=== PATIENT | male | born 1965 | race Caucasian/White ===

== ENCOUNTER 2020-10-31 21:53 | Emergency (ER) | payer OTHER ==
[~2020-10-31] VITALS: Ht 170.2 cm; Wt 64.6 kg
[~2020-10-31 21:53] MED LIST: ALLER-TEC10 MG PO; ALREX5 ML OD; ASPIRIN EC81 MG PO; CALCIUM 600-VI1 EACH PO; LOFIBRA160 MG PO; MUCINEX600 MG PO; PRAVACHOL80 MG PO; PROAIR HFA8.5 GM INH; TEMOVATE15 GM TOP; TRIAMCINOLONE A15 G1 TOP; VITAMIN D32000 UNIT PO
[2020-10-31] MEDS ORDERED: FLUOROMETHOLONE5 ML OPTH ×2 (22:28)
[2020-11-01] MEDS ORDERED: ZOFRAN4 MG PO ×2 (01:33)
[2020-11-01] MEDS ORDERED: FLOMAX0.4 MG PO ×2 (01:33)
[2020-11-01] MEDS ORDERED: LEVOFLOXACIN500 MG PO ×2 (01:33)
[2020-11-01] MEDS ORDERED: HYDROCODON-ACE1 EA10 PO ×2 (01:33)
[2020-11-09] MEDS ORDERED: BAYER CHEWABLE81 MG PO (14:07)
[2020-11-09] MEDS ORDERED: LEVOFLOXACIN500 MG PO (14:08)
[2020-11-09] MEDS ORDERED: FENOFIBRATE160 MG PO (14:08)
[2020-11-09] MEDS ORDERED: FLOMAX0.4 MG PO (14:09)
== END 2020-11-01 02:22 | disposition home or self-care (01) ==
LOC: ED 21:53
DX: N13.2 Hydronephrosis with renal and ureteral calculous obstruction (principal); N39.0 Urinary tract infection, site not specified; D64.9 Anemia, unspecified; Z88.8 Allergy status to other drugs, medicaments and biological substances; Z79.899 Other long term (current) drug therapy; Z79.82 Long term (current) use of aspirin
CPT/HCPCS: 74176; 80053; 81001; 83690; 85025; 87077; 87088; 87186; 96365; 96375; 96376; 99284-25; J0696; J1170; J1885; J2405; J7030

== ENCOUNTER 2020-11-02 06:19 | Day surgery (SDC) | payer OTHER ==
[~2020-11-02] VITALS: Ht 170.2 cm; Wt 61.0 kg
[~2020-11-02 06:19] MED LIST changes: +FLOMAX0.4 MG PO; +FLUOROMETHOLONE5 ML OPTH; +HYDROCODON-ACE1 EA10 PO; +LEVOFLOXACIN500 MG PO; +ZOFRAN4 MG PO
--- NOTE | 2020-11-02 09:30 | NUR ---
11/02/20 0930 Sheets,Ellen 8767 PT ARRIVED TO PACU ON 6L VIA MASK WITH ORAL AIRWAY IN PLACE. VSS. RESP EVEN AND UNLABORED.
--- NOTE | 2020-11-02 11:00 | NUR ---
AMB TO BR VOIDS 600ML RED URINE
--- NOTE | 2020-11-02 12:01 | NUR ---
CHECKING ON PT BEFORE SURGERY-PTS' SUPERVISOR FEED MILL IN RM. WILL FOLLOW NEEDED
--- NOTE | 2020-11-02 12:02 | NUR ---
CONNECTED WITH PT'S KWASI IN [place]. SHE IS THANKFUL PT LET HER BRING HIM TO ED ANE THEN FOLLOW UP TODAY. SHE FEELS GOOD ABOUT HIS CARE AT [facility], ALL OF HER QUESTIONS ANSWERED. GAVE BLESSING AND ENCOURAGEMENT. WILL FOLLOW NEEDED
--- NOTE | 2020-11-05 10:40 | OR ---
[facility] [address] [place], [place] [address] Signed DATE OF OPERATION: 11/02/2020 SURGEON: Tamar Ewing MD PREOPERATIVE DIAGNOSES: 1. A 5 mm left proximal ureteral calculus with associated hydronephrosis. 2. Active urinary tract infection. POSTOPERATIVE DIAGNOSES: 1. A 5 mm left proximal ureteral calculus with associated hydronephrosis. 2. Active urinary tract infection. 3. Diminutive urethral meatus. 4. Mild stenosis of the pendulous urethra. NAMES OF PROCEDURES: 1. Urethral dilation using Gilpin sounds, from 8-Citizen Of [place] to 24-Citizen [place]. 2. Diagnostic cystoscopy with left ureteral stent insertion. ANESTHESIA: General. ESTIMATED BLOOD LOSS: Minimal. COMPLICATIONS: None. SPECIMENS: None. DRAINS: A 6 x 26 cm double-J ureteral stent inserted into the left ureter. INDICATION FOR PROCEDURE: Mr. Beltre is a very pleasant 55-year-old gentleman with no previous history of nephrolithiasis, who presented to the emergency department a couple nights ago with sudden onset of severe left-sided flank pain, nausea, and vomiting. On presentation to the emergency department, he was found to have an active urinary tract infection with 3+ bacteria on his urine dip. He underwent a CT scan which revealed an obstructing 5 mm left proximal ureteral calculus with associated mild hydronephrosis. Also, noted on the Electronically Signed By: TAMAR EWING MD 11/05/20 1040 PATIENT NAME: SOULEYMANE BELTRE OPERATIVE REPORT DATE OF : 67 REPORT #: [id number] PHYSICIAN: TAMAR EWING MD PCP: ESTER BORJA MD REPORT IS CONFIDENTIAL AND NOT TO BE RELEASED WITHOUT AUTHORIZATION [facility] [address] [place], [place] [address] scan were bilateral punctate renal calculi. The patient reports that he has no known history of kidney stones. Since his presentation to the emergency department, he has been experiencing anorexia symptoms along with continued left-sided flank pain, however, his pain is somewhat improved on oral [place]. Because of the presence of UTI in combination with the obstructing stone, the patient will be taken to the operating room today to undergo diagnostic cystoscopy with placement of a left indwelling ureteral stent. OPERATIVE FINDINGS: 1. Physical examination reveals a normal phallus with testicles descended bilaterally. Further inspection of the meatus reveals that it is somewhat diminutive. His meatus did require urethral dilation using Elizabeth sounds from 8-Citizen Of [place] to 24-Citizen [place]. This was performed without difficulty. 2. Diagnostic cystoscopy was performed, which revealed no evidence of any suspicious masses, lesions, or stones. Bilateral ureteral orifices are in their normal anatomic location. I do not appreciate any obvious median lobe of the prostate or any obvious lateral lobe hypertrophy for that matter. There was some evidence of mild stenosis of the urethra, particularly in the pendulous portion of the urethra. 3. A 6 x 26 cm double-J ureteral stent was inserted into the left collecting system under fluoroscopic guidance without difficulty. DESCRIPTION OF PROCEDURE: After informed consent was obtained, the patient was taken back to the operating room. He was transferred from the [facility] to the operating room table, where general anesthesia was induced. He was placed in the dorsal lithotomy position and his genitalia were prepped and draped in a standard sterile fashion. Physical examination of the genitalia was then performed. Once the mild meatal stenosis was noted on the penis, the decision was made to dilate his urethral meatus using Gilpin sounds from 8-Citizen Of [place] to 24-Citizen [place]. Please see above operative findings. I was then able to insert a 30-degree lens cystoscope on a 22-Citizen Of [place] introducer into the patient's bladder. Diagnostic cystoscopy was then performed. Please see above findings. I turned my attention to the left ureteral orifice. A 0.035 Sensor wire was inserted into the left ureteral orifice and up into the left collecting system. Adequate placement of the wire was confirmed on fluoroscopy. Over the wire, I passed a 6 x 26 cm double-J ureteral stent without difficulty. When the wire was pulled, an adequate proximal coil was seen in the left renal pelvis via fluoroscopy. Repeat cystoscopy revealed an adequate distal coil within the bladder. The patient's bladder was then drained and the cystoscope was removed. The patient tolerated the procedure well without any complication. He will now be transferred to the postanesthesia care unit in stable condition. DISPOSITION: I discussed the details of today's procedure with the patient's and answered all of Electronically Signed By: TAMAR EWING MD 11/05/20 1040 PATIENT NAME: SOULEYMANE BELTRE OPERATIVE REPORT DATE OF : 67 REPORT #: [id number] PHYSICIAN: TAMAR EWING MD PCP: ESTER BORJA MD REPORT IS CONFIDENTIAL AND NOT TO BE RELEASED WITHOUT AUTHORIZATION [address] [address] Signed her questions. The patient now has an indwelling ureteral stent in place that will now allow proper decompression of his left collecting system. He will continue his oral Levaquin for the next 9 days. The patient was also given additional pain control in the form of Ontario 7.5/325 dispense #20 as needed for pain. He is going to be placed back on the operating room schedule to undergo definitive left ureteroscopy with laser lithotripsy and basket extraction of left ureteral and renal calculi on November 12, 2020. MD EL Fernandes/GRAY /[id number] Copies: ~ Electronically Signed By: TAMAR EWING MD 11/05/20 1040 PATIENT NAME: SOULEYMANE BELTRE OPERATIVE REPORT DATE OF : 67 REPORT #: [id number] PHYSICIAN: TAMAR EWING MD PCP: ESTER BORJA MD REPORT IS CONFIDENTIAL AND NOT TO BE RELEASED WITHOUT AUTHORIZATION
[2020-11-09] MEDS ORDERED: BAYER CHEWABLE81 MG PO (14:07)
[2020-11-09] MEDS ORDERED: LEVOFLOXACIN500 MG PO (14:08)
[2020-11-09] MEDS ORDERED: FENOFIBRATE160 MG PO (14:08)
[2020-11-09] MEDS ORDERED: FLOMAX0.4 MG PO (14:09)
== END 2020-11-02 11:45 | disposition home or self-care (01) ==
LOC: OPS 06:19 → DS 06:19 → OPS 09:00 → DS 09:00 → OPS 11:45
PROVIDERS: ATTEND Urology
PROC: 0T778DZ Dilation of Left Ureter with Intraluminal Device, Via Natural or Artificial Opening Endoscopic (ICD-10-PCS; principal; 2020-11-02 09:00)
DX: N13.6 Pyonephrosis (principal); N36.8 Other specified disorders of urethra; N35.914 Unspecified anterior urethral stricture, male; J45.909 Unspecified asthma, uncomplicated; Z20.822 Contact with and (suspected) exposure to COVID-19
CPT/HCPCS: 00910; 76000; C1769; C2617; J0696; J1100; J2001; J2250; J2405; J2704; J7121; U0003

== ENCOUNTER 2020-11-12 07:33 | Day surgery (SDC) | payer OTHER ==
[~2020-11-12] VITALS: Ht 170.2 cm; Wt 139.0 kg
[~2020-11-12 07:33] MED LIST changes: +BAYER CHEWABLE81 MG PO; +FENOFIBRATE160 MG PO
--- NOTE | 2020-11-12 11:10 | NUR ---
11/12/20 1110 Carolina Coronado 1105- PT ARRIVES TO PACU NONAROUSABLE TO VERBAL STIMULI. RESP EVEN AND UNLABORED. OXYGEN SAT HIGH 90'S TO 100% ON 6L VIA MASK. PT SHIVERING. MORE WARM BLANKETS APPLIED, SHIVERING STOPPED.
--- NOTE | 2020-11-12 12:24 | NUR ---
AMB TO BR VOIDS 200MLS PINK URINE.
--- NOTE | 2020-11-14 08:54 | OR ---
[facility] [address] [place], [place] [address] Signed DATE OF OPERATION: 11/12/2020 SURGEON: Tamar Ewing MD PREOPERATIVE DIAGNOSES: 1. 5 mm left proximal ureteral calculus. 2. Recurrent urinary tract infections. POSTOPERATIVE DIAGNOSES: 1. 5 mm left proximal ureteral calculus. 2. Recurrent urinary tract infections. 3. No obvious evidence of prostatic obstruction or urethral stricture or stenosis as a cause of recurrent urinary tract infection. NAMES OF PROCEDURES: 1. Diagnostic cystoscopy with left retrograde pyelogram. 2. Left flexible nephroureteroscopy with basket extraction of 5 mm left renal calculus. 3. Exchange of 6 x 26 cm double-J left ureteral stent. ANESTHESIA: General. ESTIMATED BLOOD LOSS: 20 mL. COMPLICATIONS: None. SPECIMENS: 5 mm stone sent to the lab for stone analysis. DRAINS: A 6 x 26 cm double-J ureteral stent inserted into the left collecting system. INDICATIONS FOR PROCEDURE: Mr. Beltre is a very pleasant 55-year-old gentleman with a previous history of recurrent urinary tract infections, who presented to the emergency department twice for left-sided flank pain and low-grade fever. At that time, he was found to have an active urinary tract infection and was given IV antibiotics as well as oral antibiotics and sent home to attempt a trial of passage. Soon thereafter, he was seen by me in clinic where he Electronically Signed By: TAMAR EWING MD 11/14/20 0854 PATIENT NAME: SOULEYMANE BELTRE OPERATIVE REPORT DATE OF : 67 REPORT #: [id number] PHYSICIAN: TAMAR EWING MD PCP: ESTER BORJA MD REPORT IS CONFIDENTIAL AND NOT TO BE RELEASED WITHOUT AUTHORIZATION [facility] [address] [place], [place] [address] Signed underwent a semi-urgent cystoscopy with left ureteral stent insertion approximately 2 weeks ago. He has been doing well since the stent has been in place and he recently completed a course of oral Levaquin. He presents today to undergo definitive stone extraction. OPERATIVE FINDINGS: 1. On cystoscopy, there was no evidence of any suspicious masses, lesions, or stones. There is also no evidence of any overt bladder wall trabeculation. He has an indwelling left ureteral stent. 2. Left retrograde pyelogram was performed via the ureteral access sheath, which revealed no evidence of any calyceal dilation. There was an obvious filling defect in the mid pole of the left kidney consistent with his known 5 mm stone. 3. Left flexible nephroureteroscopy was performed and the stone was removed in toto using a Zero tip basket without the need for lithotripsy. Of note, the stone was somewhat crumbly and I suspect that it is not a 100% calcium based stone. 4. A fresh 6 x 26 cm double-J ureteral stent was inserted into the left collecting system once the stone was extracted completely. I evaluated the remainder of the kidney and appreciated just very small punctate stones in the lower pole of the kidney. I was unable to basket these as they were too small, so I attempted to irrigate them out. DESCRIPTION OF PROCEDURE: After informed consent was obtained, the patient was taken back to the operating room. He was transferred from the [facility] to the operating room table where general anesthesia was induced. He was placed in the dorsal lithotomy position and his genitalia were prepped and draped in standard sterile fashion. The patient's urethra was dilated from 18-Sri Lankan to 26-Sri [place]ankan without difficulty. I then inserted a 22-S[place]ankan sheath with a 30-degree lens. Diagnostic cystoscopy was performed and the indwelling ureteral stent was located. The stent was removed to the level of the urethral meatus. I then passed a Sensor wire through the indwelling stent and up into the left collecting system. The indwelling ureteral stent was removed fully intact. I confirmed adequate placement of the wire on fluoroscopy. Over the wire, I passed a 13/15 ureteral access sheath into the left collecting system. Contrast was injected through the sheath and into the left kidney. Please see above findings. I then passed a ureteroscope through the sheath and into the proximal left ureter and entire left kidney. The 5 mm stone was immediately noted in the mid pole of the left kidney. The stone was extracted in toto using a Zero tip basket without difficulty. I then continued diagnostic nephroscopy to look for any other significant stones that I could extract. They were all quite small and I was unable to reliably extract any of these stones. A good deal of these punctate stones were located in the lower pole of the left kidney. I then attempted to irrigate these stones from the lower pole as best as I could. Once I was satisfied that there were no other significant stones present in the left kidney, I slowly removed the ureteroscope, visualizing the entire [id number] left ureter. I passed a Sensor wire through the Electronically Signed By: TAMAR EWING MD 11/14/20 0854 PATIENT NAME: SOULEYMANE BELTRE OPERATIVE REPORT DATE OF : 67 REPORT #: [id number] PHYSICIAN: TAMAR EWING MD PCP: ESTER BORJA MD REPORT IS CONFIDENTIAL AND NOT TO BE RELEASED WITHOUT AUTHORIZATION [address] [place] [address] Signed sheath and into the left collecting system. The ureteral access sheath was then removed completely from the patient's ureter. Over the wire, I passed a 6 x 26 cm double-J ureteral stent into the left ureter under direct visualization. Once I pulled the wire, an adequate proximal coil was seen with the left renal pelvis along with an adequate distal coil in the bladder. There was a string left attached to the stent at the end of the procedure. The string was secured to the patient's penis. The patient's bladder was then drained and the cystoscope was removed. The procedure was then terminated. The patient tolerated the procedure well without any complication. He will now be transferred to the postanesthesia care unit in stable condition. DISPOSITION: I discussed the details of today's procedure with the patient's and answered all of her questions. I told her that I do not suspect that his stone is 100% calcium. However, I do not know for sure what it is until the stone analysis returns. We will discuss the results of the stone analysis in early December at the time of his postop visit. He will be sent home today with an additional 7 days of Levaquin 500 mg p.o. daily along with oxycodone 5 mg one tablet p.o. q.6 hours p.r.n. pain, dispense #20. He has been scheduled to return to clinic on December 24 for his 1st postoperative visit. MD EL Fernandes/GRAY /[id number] Copies: ~ Electronically Signed By: TAMAR EWING MD 11/14/20 0854 PATIENT NAME: SOULEYMANE BELTRE OPERATIVE REPORT DATE OF : 67 REPORT #: [id number] PHYSICIAN: TAMAR EWING MD PCP: ESTER BORJA MD REPORT IS CONFIDENTIAL AND NOT TO BE RELEASED WITHOUT AUTHORIZATION
== END 2020-11-12 13:10 | disposition home or self-care (01) ==
LOC: OPS 07:33 → DS 07:33 → OPS 10:10 → DS 10:10 → OPS 13:10
PROVIDERS: ATTEND Urology
PROC: 0TC78ZZ Extirpation of Matter from Left Ureter, Via Natural or Artificial Opening Endoscopic (ICD-10-PCS; 2020-11-12)
PROC: 0T778DZ Dilation of Left Ureter with Intraluminal Device, Via Natural or Artificial Opening Endoscopic (ICD-10-PCS; principal; 2020-11-12 10:10)
DX: N20.2 Calculus of kidney with calculus of ureter (principal); N39.0 Urinary tract infection, site not specified; Z79.82 Long term (current) use of aspirin
CPT/HCPCS: 00918; 74420; C1769; C2617; J0690; J1100; J1885; J2001; J2405; J2704; J3010; J7121; Q9967

== ENCOUNTER 2024-01-13 06:58 | Emergency (ER) | payer OTHER ==
[~2024-01-13] VITALS: Ht 170.2 cm; Wt 60.0 kg
[~2024-01-13 06:58] MED LIST changes: +PHYTOMULTI TAB1 EACH PO; +ZETIA10 MG PO
--- OUTSIDE RECORDS SUMMARY | 2024-01-13 07:05 | XMS ---
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 Malou has no Care Guidelines for this patient. [place] VISIT COUNT (12 MO.) 1 TOO [place] [facility] TOTAL 2 NOTE: Visits indicate total known visits. ED/C VISIT TRACKING (12 MO.) 01/13/2024 06:59 [facility]OO [facility] [place] TYPE: Emergency COMPLAINT: - [facility] DIAGNOSES: - Other difficulties with micturition - Urinary Complaint INPATIENT VISIT TRACKING (12 MO.) No inpatient visits to display in this time frame [email or web address]
[2024-01-13] MEDS ORDERED: TAMSULOSIN HCL0.4 MG PO (07:15)
[2024-01-13] MEDS ORDERED: CEPHALEXIN500 MG PO (07:15)
[2024-01-13] MEDS ORDERED: PHENAZOPYRIDIN200 MG PO (07:15)
[2024-01-13 07:40] LABS: BILIRUBIN, URINE POSITIVE (negative); BLOOD/HGB, URINE LARGE (Negative); KETONE, URINE TRACE (Negative); LEUK ESTERASE, URINE TRACE (negative); NITRITE, URINE POSITIVE (negative)
[2024-01-13 07:51] LABS: BACTERIA, URINE RARE /hpf (negative); CASTS, URINE NONE SEEN \\lpf; COLLECTION TYPE, URINE CLEAN CATCH; CRYSTALS, URINE NONE SEEN (0-1+); EPITHELIAL CELLS, URINE OCCASIONAL /lpf (0-1+); RED BLOOD CELLS, URINE >50 /hpf (0-5); REFLEX CULTURE, URINE Yes (No); WHITE BLOOD CELLS, URINE 21-40 /HPF (0-5)
[2024-01-13] MEDS ORDERED: OXYBUTYNIN CHLOR5 M1 PO (07:59)
[2024-01-13] MEDS ORDERED: TAMSULOSIN HCL 0.4 MG CAP PO ONE (08:00)
[2024-01-13] MEDS ORDERED: PHENAZOPYRIDINE HCL 95 MG TAB PO ONE (08:00)
[2024-01-13] MEDS ORDERED: oxyBUTYnin chloride 5 MG TAB PO ONE (08:00)
[2024-01-13 08:50] VITALS: BP 138/78
== END 2024-01-13 08:51 | disposition home or self-care (01) ==
LOC: ED 06:58
PROVIDERS: Emergency Medicine
DX: N32.89 Other specified disorders of bladder (principal); J45.909 Unspecified asthma, uncomplicated; Z91.048 Other nonmedicinal substance allergy status; Z79.82 Long term (current) use of aspirin; Z79.899 Other long term (current) drug therapy
CPT/HCPCS: 51798; 81001; 87088; 99283-25

== ENCOUNTER 2024-03-07 06:53 | Day surgery (SDC) | payer OTHER ==
[2024-03-02 10:34] VITALS: BP 131/82
[~2024-03-07] VITALS: Ht 170.2 cm; Wt 61.4 kg
--- NOTE | 2024-03-07 06:25 | NUR ---
DURING REVIEW OF PTS CHART, NOTED PT WITH POSITIVE UA AND CULTURE. DR. EWING NOTIFIED VIA PHONE AND VERBAL ORDERS RECEIVED TO DC ANCEF AND REPLACE WITH 500 MG LEVOFLOXACIN ONCALL TO OR. UPDATED ORDERS IN EMAR.
[~2024-03-07 06:53] MED LIST changes: -CALCIUM 600-VI1 EACH PO; +CALCIUM PO; +CEPHALEXIN500 MG PO; +FLUOROMETHOLONE5 ML OD; -FLUOROMETHOLONE5 ML OPTH; +LACTATED RINGER'S 1,000 ML IV SCH; +OXYBUTYNIN CHLOR5 M1 PO; +PHENAZOPYRIDIN200 MG PO; +TAMSULOSIN HCL0.4 MG PO; +[UNRECOGNIZED DRUG - OTHER] PO
[2024-03-07] MEDS ORDERED: levoFLOXacin 500 MG/100 ML BAG IV SCH (07:00)
[2024-03-07] MEDS ORDERED: IBLOOD GLUCOSE TEST STRIP 1 EA TEST VI PRN ×2 (07:00→07:15)
[2024-03-07] MEDS ORDERED: CEFAZOLIN SODIUM 2 GM/20 ML SYR IV SCH (07:00)
[2024-03-07] MEDS ORDERED: LIDOCAINE HCL 1% 5 ML SDV INJ ONE (07:00)
[2024-03-07 07:08] VITALS: BP 125/78
[2024-03-07] MEDS ORDERED: fentaNYL citrate 50 MCG/ML SDV IV PRN (07:15)
[2024-03-07] MEDS ORDERED: NALOXONE HCL 0.4 MG SYR IV PRN (07:15)
[2024-03-07] MEDS ORDERED: ondansetron HCL 4 MG/2 ML VIAL IV PRN ×2 (07:15→07:45)
[2024-03-07] MEDS ORDERED: HYDROmorphone HCL 1 MG/ML SYR IV PRN (07:45)
[2024-03-07] MEDS ORDERED: OXYCODONE/APAP 5/325 TAB PO PRN (07:45)
[2024-03-07] MEDS ORDERED: LIDOCAINE HCL 2% 5 ML SDV ONE (07:51)
[2024-03-07] MEDS ORDERED: propofoL 200 MG/20 ML VIAL ONE (07:51)
[2024-03-07] MEDS ORDERED: fentaNYL citrate 100 MCG/2 ML VIAL ONE (08:24)
[2024-03-07] MEDS ORDERED: ePHEDrine sulfate 50 MG/ML AMP ONE (08:45)
[2024-03-07] MEDS ORDERED: ondansetron HCL 4 MG/2 ML VIAL ONE (09:21)
[2024-03-07] MEDS ORDERED: LEVOFLOXACIN500 MG PO (09:30)
[2024-03-07] MEDS ORDERED: OXYCODONE HCL5 MG PO (09:31)
[2024-03-07] MEDS ORDERED: oxyBUTYnin chloride 5 MG TAB PO ONE (09:45)
--- NOTE | 2024-03-07 09:58 | NUR ---
03/07/24 0958 Lucinda Lynn 0936 PT TO PACU SLEEPING ORAL AIRWAY IN PLACE. O2 ON 6L VIA MASK. FOGGING NOTED IN MASK.
[2024-03-07 10:30] VITALS: BP 163/90
--- NOTE | 2024-03-07 11:05 | NUR ---
1030-PT ARRIVED BACK TO FROM PACU ON AAOX3 AND ABLE TO MAKE HIS NEEDS KNOWN. PT NOTED TO ANSWER QUESTIONS APPROPRIATELY. PT ON RA WITH SATS 95% OR GREATER. REPEPORT RECEIVED FROM FLAT OPTICAL ELEMENT MAKER. PT TAKING SMALL SIPS OF WATER. PT REPORTS PAIN 3/10 AND DESCIBES AT FEELING LIKE URGENCY/FREQ AND BLADDER DISCOMFORT. PT REPORTS SOME CONTROL OF BLADDER, BUT DRIBBLING IS NOTED. PT WITH URINAL IN PLACE TO CATCH AT PTS REQUEST. URINAL EMPTIED OF 50 ML OF PINK-BLOOD TINGED URINE. NO BLEEDING OR DRAINAGE NOTED FROM URETHRA UPON OBSERVATION. PT DENIES NAUSEA WHEN ASKED. PT GIVEN CHOCOLATE PUDDING AND CHELSI CRACKERS AND IS EATING NOW. VS TAKEN. IV SITE ASSESSED, PATENT, AND INFUSING LR PER ORDERS. ALL QUESTIONS ANSWERED. CALL LIGHT WITHIN PT REACH. BED IN LOW POSITION WITH WHEELS LOCKED. BILAT RAILS IN PLACE FOR SAFETY. 1055-PT PROVIDED WITH NEW WARM BLANKET AND ICE WATER REFILLED. 1105-PTS DAUGHTER AND ARRIVED TO PTS ROOM AND PICKED UP RX'S TO TAKE TO PHARMACY AND DROP OFF. FAMILY REPORTS THEY WILL RETURN AFTER DROPPING RX'S OFF.
[2024-03-07 11:30] VITALS: BP 166/83
--- NOTE | 2024-03-07 11:50 | NUR ---
1130-INTO PTS ROOM FOR ROUTINE REASSESSMENT. VS TAKEN. IV SITE ASSESSED. PT IS EATING AND DRINKING W/O ISSUES. IV SL'D AT THIS TIME. PT CONT TO DENY NAUSEA WHEN ASKED. PT REPORTS PAIN IN BLADDER/URETHRA INCREASED SLIGHTLY TO 4/10. PT DECLINES PAIN MEDS AND REPORTS THIS TO BE A TOLERABLE LEVEL FOR HIM. PT REMAINS WITH URINAL IN PLACE. EMPTIED OF APPROX 500 ML OF BLOOD TINGED URINE. NOTED A COUPLE SMALL BLOOD CLOTS. NO BLEEDING OR DRAINAGE VISUALIZED FROM URETHRA. PT REPLACED URINAL AFTER THIS RN EMPTIED. PT REPORTS DRIBBLING OF URINE W/FREQ AND URGENCY. CALL LIGHT W/IN PT REACH. BED IN LOW POSIION, WHEELS LOCKED, AND BILAT RAILS IN [place] FOR SAFETY. ICE WATER REFILLED. 1150-PTS DAUGHTER RETURNED AND IS AT PTS BEDSIDE.
[2024-03-07] MEDS ORDERED: PYRIDIUM200 MG PO (11:57)
[2024-03-07] MEDS ORDERED: OXYBUTYNIN CHLOR5 M1 PO (11:57)
[2024-03-07 12:15] VITALS: BP 147/76
--- NOTE | 2024-03-07 12:25 | NUR ---
1200-INTO PTS ROOM FOR DISCHARGE EDUCATION AND ROUTINE REASSESSMENT. PT INFORMED DR. EWING OFFICE WILL CONTACT HIM TO SCHEDULE A 4-6 WEEK F/U APPT. ADVISED PT TO CALL AND SCHEDULE IF HE HAS NOT HEARD FROM THEM BY THURSDAY. PT EDUCATED ON NEW MEDS ORDERS. PT INFORMED TO START OXYBUTYNIN AND LEVAQUIN ON 03/08/24, HE HAS ALREADY RECEIVED HIS DAILY DOSES HERE TODAY. PT VERBALIZED UNDERSTANDING. PT GIVEN EDUCATION HANDOUT ON CYSTITIS AND DISCUSS AVOIDING ACIDIC FOODS, BEVERAGES, AND INCREASING WATER INTAKE TO HELP DECREASE BLADDER IRRITATION AND PREVENT FLARE-UPS. PT VERBALIZED UNDERSTANDING. ALL QUESTIONS ANSWERED. DAUGHTER PRESENT FOR DC EDUCATION WELL. 1215-VS TAKEN. IV SITE ASSESSED. PT DENIES NAUSEA. PT REPORTS PAIN DECREASED TO 2/10. URINAL EMPTIED OF ANOTHER 300 ML OF PINK BLOOD TINGED URINE, THOUGH MANAGER FIRE PINK THAN PREVIOUSLY OBSERVED. NO CLOTS PRESENT. DAUGHTER REMAINS AT PT BEDSIDE. NO BLOOD OR DRAINAGE SEEN FROM URETHRA. 1220-PT ASSISTED TO EOB AND AMBULATED TO RESTROOM WITH RN SUPERVISION FOR SAFETY. PT ABLE TO VOID 300 ML OF BLOOD TINGED URINE AT ONCE. PT DRESSED FOR DISCHARGE. 1225-IV REMOVED FROM LFA. TIP OBSERVED TO BE INTACT. PRESSURE DRSG APPLIED WITH GAUZE AND COBAN. DAUGHTER LEFT TO PULL CAR AROUND FRONT.
--- NOTE | 2024-03-07 12:30 | NUR ---
PT DISCHARGED FROM DS VIA WC TO PASSENGER SIDE OF DAUGHTERS VEHICLE. PT TOOK ALL PERSONAL BELONGINGS WITH HIM.
[2024-03-07] MEDS ORDERED: SEVOFLURANE 250 ML BTL INH ONE (15:43)
--- NOTE | 2024-03-09 16:37 | PATH ---
[facility] [address] [place], [place] [address] Signed SPECIMEN(S): A POSTERIOR BLADDER WALL BIOPSY SPECIMEN SOURCE: A. POSTERIOR BLADDER WALL BIOPSY CLINICAL HISTORY: Bladder lesion, ureteral stenosis FINAL PATHOLOGIC DIAGNOSIS: Posterior bladder wall biopsy: - Urothelium with diffuse superficial erosion and atypia (favor reactive) with mixed inflammation, negative for invasive malignancy. - See comment. COMMENT: The urothelial atypia is likely reactive there is no evidence of invasive urothelial carcinoma in the prominent background of stromal inflammation. JVR:cml MICROSCOPIC EXAMINATION: Histologic sections of all submitted blocks are examined by light microscopy. These findings, together with the gross examination, support the pathologic diagnosis. Immunostains are performed with appropriate controls and show the following: Block A1: - CK5: Positive in urothelium of concern. - CK20: Negative for full-thickness urothelial staining or occult carcinoma. JVR:cml GROSS DESCRIPTION: The specimen, labeled and designated "Case, posterior bladder wall biopsy," is received in formalin and consists of two maldonado soft tissue fragments, ranging from 0.2-0.3 cm. Entirely submitted in (A1). VB (under the direct supervision of a pathologist) The Gross Description was prepared using a voice recognition system. The report was reviewed for accuracy; however, sound-alike word errors, addition and/or deletions may occur. If there is any question about this report, please contact Client Services. PERFORMING LABORATORY: Technical component was performed by [employer], [place]o [place], PATIENT NAME: SOULEYMANE SERRANO PATHOLOGY DATE OF : 67 REPORT #: [id number] PHYSICIAN: RHONDA PATHOLOGY PCP: HUGO OH MD REPORT IS CONFIDENTIAL AND NOT TO BE RELEASED WITHOUT AUTHORIZATION [address] [place], [place] [address] [place] [address] (CLIA# [id number]). Professional interpretation was performed by [facility] - [address] [address] (CLIA#: [id number]). Diagnostician: Bran Bazan MD Pathologist Electronically Signed 03/09/2024 Copies: ~ PATIENT NAME: SOULEYMANE SERRANO PATHOLOGY DATE OF : 67 REPORT #: [id number] PHYSICIAN: RHONDA GARLAND PCP: HUGO OH MD REPORT IS CONFIDENTIAL AND NOT TO BE RELEASED WITHOUT AUTHORIZATION
== END 2024-03-07 12:30 | disposition home or self-care (01) ==
LOC: OPS 06:53 → DS 06:53 → OPS 08:55 → DS 12:55
PROVIDERS: ATTEND Urology
PROC: 0T5B8ZZ Destruction of Bladder, Via Natural or Artificial Opening Endoscopic (ICD-10-PCS; 2024-03-07)
PROC: 0T7D8DZ Dilation of Urethra with Intraluminal Device, Via Natural or Artificial Opening Endoscopic (ICD-10-PCS; principal; 2024-03-07 08:55)
DX: N30.11 Interstitial cystitis (chronic) with hematuria (principal); B95.7 Other staphylococcus as the cause of diseases classified elsewhere; N35.816 Other urethral stricture, male, overlapping sites; N32.89 Other specified disorders of bladder; N40.1 Benign prostatic hyperplasia with lower urinary tract symptoms; R33.9 Retention of urine, unspecified; E78.00 Pure hypercholesterolemia, unspecified; Z79.82 Long term (current) use of aspirin; Z79.899 Other long term (current) drug therapy
CPT/HCPCS: 00912; J1956; J2405; J2704; J3010; J7121

== ENCOUNTER 2024-03-22 01:18 | Inpatient (IN) | payer OTHER ==
[2024-03-22] VITALS (10 sets, daily range): BP systolic 93–166; BP diastolic 55–77
[~2024-03-22] VITALS: Ht 170.2 cm; Wt 60.0 kg
[~2024-03-22 01:18] MED LIST changes: +CHOLESTEROL RE1 EACH PO; -LACTATED RINGER'S 1,000 ML IV SCH; +OXYCODONE HCL5 MG PO; -PHYTOMULTI TAB1 EACH PO; +PYRIDIUM200 MG PO
[2024-03-22 01:49] LABS: BILIRUBIN, URINE NEGATIVE (negative); BLOOD/HGB, URINE LARGE (Negative); KETONE, URINE NEGATIVE (Negative); LEUK ESTERASE, URINE NEGATIVE (negative); NITRITE, URINE NEGATIVE (negative)
[2024-03-22 01:52] LABS: CASTS, URINE NONE SEEN \\lpf; COLLECTION TYPE, URINE CLEAN CATCH; CRYSTALS, URINE NONE SEEN (0-1+); EPITHELIAL CELLS, URINE SQUAMOUS 1+ /lpf (0-1+); RED BLOOD CELLS, URINE >50 /hpf (0-5)
[2024-03-22 01:53] LABS: BACTERIA, URINE 4+ /hpf (negative); REFLEX CULTURE, URINE Yes (No)
[2024-03-22] MEDS ORDERED: MORPHINE SULFATE 4 MG/ML VIAL IV ONE (02:00)
[2024-03-22] MEDS ORDERED: ondansetron HCL 4 MG/2 ML VIAL IV ONE (02:00)
[2024-03-22] MEDS ORDERED: SODIUM CHLORIDE 0.9% 1,000 ML IV ONE (02:00)
[2024-03-22 02:11] LABS: BASOPHILS 0.2 % (0-2); EOSINOPHILS 1.2 % (0-6); HEMATOCRIT 34.9 % (35.0-50.0); HEMOGLOBIN 11.8 g/dL (12.0-18.0); LYMPHOCYTES 11.9 % (24-44); MCH 28.5 (27-36); MCHC 33.7 g/dl (30-36); MCV 84.5 fl (81-99); MONOCYTES 4.5 % (0-12); NEUTROPHILS 82.2 % (39-80); PLATELET COUNT 325 K/uL (140-440); RBC 4.13 M/ul (4.3-5.7); RDW 12.8 (10.5-15.0)
[2024-03-22 02:24] LABS: ALBUMIN 3.4 g/dL (3.4-5.0); ALBUMIN/GLOBULIN RATIO 1.13 (1.1-2.4); ANION GAP 12.4 (7-21); BILIRUBIN, TOTAL 0.4 ng/dL (0.2-1.0); BUN/CREATININE RATIO 14.04 (6.0-28.6); CALCIUM 8.4 mg/dL (8.5-10.1); CREATININE, SERUM 1.21 mg/dL (0.70-1.30); MAGNESIUM 1.7 mg/dL (1.8-2.4); POTASSIUM 3.4 mmol/L (3.5-5.1); PROTEIN, TOTAL 6.4 g/dL (6.4-8.2)
[2024-03-22 02:49] LABS: ABO A; ANTIBODY SCREEN NEGATIVE; RH POSITIVE
[2024-03-22] MEDS ORDERED: CEFTRIAXONE/SODIUM CHLORIDE 2 GM/100 ML PIGGYBACK IV ONE (03:15)
[2024-03-22] MEDS ORDERED: LIDOCAINE 2% VISCOUS 6 ML SYR TOP ONE ×2 (03:15→03:30)
[2024-03-22] MEDS ORDERED: ACETAMINOPHEN 325 MG TAB PO PRN (03:30)
[2024-03-22] MEDS ORDERED: LACTATED RINGER'S 1,000 ML IV SCH (03:30)
[2024-03-22] MEDS ORDERED: HYDROmorphone HCL 1 MG/ML SYR IV PRN (03:30)
[2024-03-22] MEDS ORDERED: ondansetron HCL 4 MG/2 ML VIAL IV PRN ×2 (03:30→12:15)
--- NOTE | 2024-03-22 04:41 | NUR ---
PT ADMITTED AT 0415 FROM ED VIA STRETCHER, SIZE [address] F/C DRAININGN RED COLORED URINE, CBI INFUSING. ALERT AND ORIENTED, ON ROOM AIR. TELE#[address] AT BEDSIDE
--- NOTE | 2024-03-22 06:30 | NUR ---
IN RM BECAUSE pt HR INCREASED TO 130'S. pt STATES HE HAD THE FEELING OF HAVING TO PEE. THEN IT WENT AWAY. THIS RN FLUSHED SEBASTIAN AND CHECKED THE CBI BAG. FIRST BAG EMPTY. NEW BAG STARTED. pt DENIES ANY NEED FOR PAIN MEDICATION AT THIS TIME. CALL LIGHT WITHIN REACH.
--- NOTE | 2024-03-22 06:42 | NUR ---
PT C/O BLADDER/PENILE DISCOMFORT. PER TELE#3 PULSE INCREAED TO 160, PT r LEG TWITCHING AND PT C/O 6/10 PAIN, F/C DRAINAGE DARK RED, FLUSHED. CBI INFUSING INFUSING, MEDICATED WITH DILAUDID 0.5MG IV. NPO FAMILY AT BEDSIDE
--- NOTE | 2024-03-22 07:25 | NUR ---
BEDSIDE REPORT RECEIVED FROM VIDAL JIMENEZ. PT AWAKE AND ALERT, DR. EWING IN ROOM. SURGICAL CONSENT PERFORMED. CALL LIGHT IN REACH.
[2024-03-22 07:51] LABS: BASOPHILS 0.2 % (0-2); EOSINOPHILS 0.3 % (0-6); HEMATOCRIT 31.6 % (35.0-50.0); HEMOGLOBIN 10.6 g/dL (12.0-18.0); MCH 28.4 (27-36); MCHC 33.6 g/dl (30-36); MCV 84.5 fl (81-99); MONOCYTES 3.6 % (0-12); NEUTROPHILS 84.9 % (39-80); PLATELET COUNT 296 K/uL (140-440); RBC 3.74 M/ul (4.3-5.7); RDW 12.9 (10.5-15.0)
--- NOTE | 2024-03-22 07:57 | NUR ---
SEBASTIAN FLUSHED WITH 15 MLS NS, 15 MLS PULLED BACK, NO CLOTS, SEBASTIAN CATHETER DRAINS TO GRAVITY.
[2024-03-22] MEDS ORDERED: PHENAZOPYRIDINE HCL 95 MG TAB PO PRN (08:00)
[2024-03-22] MEDS ORDERED: MORPHINE SULFATE 4 MG/ML VIAL IV PRN (08:00)
--- NOTE | 2024-03-22 08:20 | NUR ---
CONTACT BY PT'S PIPELINE CONTROLLER, REQUESTED VISIT PRIOR TO SURGERY. PT SUPPORTED BY ADULT DAUGHTER AND PIPELINE CONTROLLER IN ROOM. ALL APPEARED TO BE IN RELATIVELY GOOD SPIRITS, RELAYED INFORMATION FROM CARE TEAM, EXPRESSED CONFIDENCE IN CARE, HOPE IN RECOVERY. CERTIFIED PROFESSIONAL ERGONOMIST PROVIDED SUPPORTIVE PRESENCE, HOSPITALITY, PARTICIPATED IN PRAYER PROVIDED BY PT'S PIPELINE CONTROLLER. PT AND FAMILY EXPRESSED GRATITUDE.
--- NOTE | 2024-03-22 08:45 | NUR ---
PT LEAVES UNIT VIA BED, ESCORTED BY VIDAL ZABALA TO SURGERY.
[2024-03-22] MEDS ORDERED: propofoL 200 MG/20 ML VIAL ONE (09:04)
[2024-03-22] MEDS ORDERED: LIDOCAINE HCL 2% 5 ML SDV ONE (09:04)
[2024-03-22] MEDS ORDERED: DEXAMETHASONE SOD PHOS 4 MG/ML VIAL ONE (09:04)
[2024-03-22] MEDS ORDERED: ondansetron HCL 4 MG/2 ML VIAL ONE (09:04)
[2024-03-22] MEDS ORDERED: fentaNYL citrate 100 MCG/2 ML VIAL ONE ×2 (09:04→10:54)
--- NOTE | 2024-03-22 09:34 | NUR ---
UR CLINICAL REVIEW: [facility] INPATIENT CRITERIA FOR UROLOGIC DISEASE GRG INPT 03/22/24 @ 0847 WILL UPDATE REG CLINICALS SENT TO [facility] FOR AUTH REVIEW DISCHARGE TO HOME WHEN STABLE. ANTICIPATE 2-3 DAYS WITH CBI. 03/25/24
[2024-03-22] MEDS ORDERED: ePHEDrine sulfate 50 MG/ML AMP ONE (09:47)
[2024-03-22] MEDS ORDERED: TRANEXAMIC ACID 1,000 MG/10 ML AMP ONE ×2 (09:54→11:42)
--- NOTE | 2024-03-22 11:00 | NUR ---
Attempted to see pt. He remains in surgery. Will fu tomorrow.
[2024-03-22] MEDS ORDERED: TRIAMCINOLONE 0.1% 15 GM TUBE ONE (11:38)
--- NOTE | 2024-03-22 11:59 | NUR ---
03/22/24 Radha9 Allyson Up SCANT CLEAR URINE NOTED SEBASTIAN OVERNIGHT BAG. BLADDER IRRIGATION SLOWED.
[2024-03-22] MEDS ORDERED: oxyBUTYnin chloride 5 MG TAB PO ONE (12:00)
[2024-03-22] MEDS ORDERED: PHARMACY RENAL DOSE ADJUSTMENT 1 DOSE MISC PO SCH (12:00)
[2024-03-22] MEDS ORDERED: MORPHINE SULFATE 10 MG/ML VIAL IV PRN (12:15)
[2024-03-22] MEDS ORDERED: IBLOOD GLUCOSE TEST STRIP 1 EA TEST VI PRN (12:15)
[2024-03-22] MEDS ORDERED: NALOXONE HCL 0.4 MG SYR IV PRN (12:15)
[2024-03-22] MEDS ORDERED: fentaNYL citrate 50 MCG/ML SDV IV PRN (12:15)
[2024-03-22] MEDS ORDERED: PROCHLORPERAZINE EDISYLATE 10 MG/2 ML VIAL IV PRN (12:15)
[2024-03-22] MEDS ORDERED: droPERidol 5 MG/2 ML VIAL IV PRN (12:15)
[2024-03-22] MEDS ORDERED: METOCLOPRAMIDE HCL 10 MG/2 ML SDV IV PRN (12:15)
--- NOTE | 2024-03-22 13:09 | NUR ---
PT RETURNS TO [facility], ROOM 119 AT 1240, VIA BED. PT IS AWAKE AND ALERT. DENIES PAIN, NAUSEA OR DISCOMFORT AT THIS TIME. NOTED CBI IN PLACE, OUTPUT IS CLEAR AT THIS TIME. VSS. CPOX IN PLACE, PT SATS 98% ON RA. SCDS FROM ANKLE TO KNEE BLE. TELEMETRY IN PLACE. PT EATS LUNCH, TOLERATING THIS WELL. CALL LIGHT IN REACH. NO REQUESTS AT THIS TIME.
--- NOTE | 2024-03-22 13:43 | NUR ---
CBI CONINTUES, RATE TITRATED DOWN. SEBASTIAN OUTPUT CONTINUES TO BE CLEAR. PT EATS 100% OF LUNCH, TOLERATES THIS WELL. VISITORS X2 IN ROOM. NO REQUESTS AT THIS TIME.
--- NOTE | 2024-03-22 13:44 | NUR ---
MED REC COMPLETE
--- NOTE | 2024-03-22 15:29 | NUR ---
PT IS AWAKE AND ALERT, ALTHOUGH HE REPORTS FEELING, "SLEEPY," AND, "I DIDN'T SLEEP WELL LAST NIGHT. PT SATS 97% ON RA. CBI CONTINUES TO BE TITRATED DOWN TO SLOW RATE. SEBASTIAN CONTINUES TO DRAIN CLEAR YELLOW URINE. CBI STOPPED AT THIS TIME.
[2024-03-22] MEDS ORDERED: SEVOFLURANE 250 ML BTL INH ONE (15:43)
--- NOTE | 2024-03-22 16:41 | NUR ---
PT REPORTS HIS DAUGHTER TOO HIS [place] [facility].
--- NOTE | 2024-03-22 16:44 | NUR ---
CBI HAS NOW BEEN STOPPED X1 HOUR. SEBASTIAN DRAINS CLEAR, PALE YELLOW OUTPUT, 350 ML NOTED. SEBASTIAN CLAMPED. 125 ML OF CBI ALLOWED INTO BLADDER, UNTIL PT REPORTS URGE TO VOID. SEBASTIAN REMOVED, TIP INTACT. PT ATTEMPTS TO VOID IN URINAL, NO URINE AT THIS TIME. PT REQUESTS TIME TO ATTEMPT.
--- NOTE | 2024-03-22 16:56 | NUR ---
PATIENT IN BED AT THIS TIME. CALL LIGHT WITHIN REACH, NO FURTHER NEEDS AT THIS TIME.
--- NOTE | 2024-03-22 17:32 | NUR ---
PT AMBULATES TO TOILET WITH STEADY GAIT, VOIDS 200 MLS OF CLEAR LIGHT ORANGE URINE. PT TOLERATES THIS WELL. PT BACK TO BED. SCDS IN PLACE. CALL LIGHT IN REACH, DINNER TO PT. NO REQUESTS AT THIS TIME.
[2024-03-22 17:58] LABS: BASOPHILS 0.2 % (0-2); EOSINOPHILS 0.1 % (0-6); HEMATOCRIT 30.3 % (35.0-50.0); HEMOGLOBIN 10.3 g/dL (12.0-18.0); LYMPHOCYTES 6.8 % (24-44); MCHC 34.1 g/dl (30-36); MONOCYTES 2.5 % (0-12); NEUTROPHILS 90.4 % (39-80); PLATELET COUNT 286 K/uL (140-440); RBC 3.57 M/ul (4.3-5.7); RDW 12.9 (10.5-15.0)
--- NOTE | 2024-03-22 18:29 | NUR ---
PATIENT IN BED AT THIS TIME. CHEMICAL PLANT TECHNICAL DIRECTOR CHARTED VITALS AND I&O'S. CALL LIGHT WITHIN REACH, NO FURTHER NEEDS AT THIS TIME.
--- NOTE | 2024-03-22 19:05 | NUR ---
REPORT RECEIVED FROM ARTEMIO DRAKE. pt RESTING IN THE BED WITH SCD'S ON. pt STATES HE WANT TO TRY AND USE THE BR. AGRICULTURAL ENGINEERING TECHNICIAN CALLED INTO RM TO HELP pt. NO OTHER NEEDS AT THIS TIME. CALL LIGHT WITHIN REACH.
--- NOTE | 2024-03-22 20:00 | NUR ---
ANSWERED PATIENT'S CALL. SBA TO THE BATHROOM AND BACK TO BED. PATIENT VOIDED 200ML CLEAR LIGHT YELLOW URINE. ICE WATER REFILLED. NO OTHER NEEDS AT THIS TIME.
[2024-03-22] MEDS ORDERED: CEFTRIAXONE/SODIUM CHLORIDE 1 GM/100 ML PIGGYBACK IV SCH (21:00)
--- NOTE | 2024-03-22 21:05 | NUR ---
ASSESSMENT AND VITAL SIGNS DONE. pt STATES HE HAS 2/10 PAIN. BUT DENIES ANY NEED FOR PAIN MEDICATION. IB ABX INFUSING PER ORDER. pt DENIES ANY OTHER NEEDS AT THIS TIME. SCD'S ON. IV FLUSHED, WNL. CALL LIGHT WITHIN REACH.
--- NOTE | 2024-03-22 21:30 | NUR ---
PATIENT CALLED TO USE THE RESTROOM. SBA. PATIENT VOIDED 300ML CLEAR YELLOW URINE. PATIENT IS BACK IN BED. ICE WATER REFILLED. NO OTHER NEEDS AT THIS TIME.
--- NOTE | 2024-03-22 23:29 | NUR ---
pt RESTING IN THE BED. DUCUSEED PRN MEDICATION WITH pt. pt DENIES THE NEED FOR ANY MEDICATION AT THIS TIME. CALL LIGHT WITHIN REACH.
[2024-03-23 00:32] VITALS: BP 113/60
--- NOTE | 2024-03-23 00:33 | NUR ---
SBA PATIENT UP TO THE BATHROOM TO VOID 300ML CLEAR YELLOW URINE. PATIENT IS BACK IN BED. V/S AND I&'S TAKEN AND CHARTED. DENIES FURTHER NEEDS AT THIS TIME.
--- NOTE | 2024-03-23 01:50 | NUR ---
pt RESTING IN THE BED. pt CALLED FOR HIS SCD MACHINE ALARMING. ALARM FIXED. pt DENIES ANY OTHER NEEDS AT THIS TIME. CALL LIGHT WITHIN REACH.
[2024-03-23 05:02] VITALS: BP 118/67
--- NOTE | 2024-03-23 05:07 | NUR ---
ASSESSMENT AND VITAL SIGNS DONE. pt UP TO THE BR. SBA FOR LINE AND TUBE MANAGEMENT. SCD'S ON. CPOX ON. pt DENIES ANY OTHER NEEDS AT THIS TIME. CALL LIGHT WITHIN REACH.
[2024-03-23 05:42] LABS: ANION GAP 8.1 (7-21); BUN/CREATININE RATIO 12.87 (6.0-28.6); CALCIUM 8.5 mg/dL (8.5-10.1); CREATININE, SERUM 1.01 mg/dL (0.70-1.30); MAGNESIUM 1.9 mg/dL (1.8-2.4); POTASSIUM 4.1 mmol/L (3.5-5.1)
--- NOTE | 2024-03-23 07:05 | NUR ---
VERBAL REPORT RECEIVED FROM VIDAL JIMENEZ. PT RESTS IN BED WITH EYES CLOSED, RESP EVEN AND UNLABORED, PT O2 SATS PER CPOX 97% ON RA.
--- NOTE | 2024-03-23 08:17 | NUR ---
PATIENT IN CHAIR AT THIS TIME. NUTRITION COORDINATOR ASSISTED PATIENT FROM BED THE BATHROOOM AND THEN BACK TO THE CHAIR. NUTRITION COORDINATOR CHARTED PATIENTS VOIDINGS ON CHART IN ROOM. CALL LIGHT WITHIN REACH, NO FURTHER NEEDS AT THIS TIME.
--- NOTE | 2024-03-23 08:33 | NUR ---
PT SITS UP IN RECLINER, EATS MEAL, DENIES PAIN OR DISCOMFORT AT THIS TIME. CALL LIGHT IN REACH, NO REQUESTS AT THIS TIME.
[2024-03-23] MEDS ORDERED: LEVOFLOXACIN750 MG PO (09:19)
--- NOTE | 2024-03-23 09:30 | NUR ---
Spoke with Tolilliam. He is resting in bed. and daughter are in the room. He lives in a home with 2 steps. No issues getting in or out. Pt does not use any DME. Plans on dc to home with his and 2 daughters. He denies any needs. He does not have any financial issues. Family will assist with household tasks, cooking, driving. Pt has a fu appt scheduled with . Appt added to dc.
[2024-03-23 09:54] VITALS: BP 97/57
--- NOTE | 2024-03-23 10:36 | NUR ---
DISCUSSED DISCHARGE INSTRUCTIONS WITH PT AND PT'S SPOUSE, BOTH VERBALIZE UNDERSTANDING. WRITTEN COPY OF DISCHARGE INSTRUCTIONS RECEIVED. PT DRESSES SELF, TOLERATES ACTIVITY WELL, VSS. IV REMOVED, TIP INTACT, GAUZE AND COBAN DRESSING APPLIED TO SITE, PT TOLERATED WELL. PT LEAVES MED-SURG VIA WHEELCHAIR ESCORTED BY SCOTTIE WEI, TO PRIVATE CAR DRIVEN BY SPOUSE.
--- NOTE | 2024-03-24 19:02 | EKG ---
[facility] [address] [place], [place] [address] Signed Normal sinus rhythm Normal ECG No previous ECGs available Confirmed by Michelle Shah MD ([id number]) on 03/24/2024 7:02:08 PM Electronically Signed By: MICHELLE SHAH MD 03/24/24 190 PATIENT NAME: CASESOULEYMANE Electrocardiogram DATE OF : 67 PHYSICIAN: MICHELLE SHAH MD REPORT #: [id number] REPORT IS CONFIDENTIAL AND NOT TO BE RELEASED WITHOUT AUTHORIZATION
== END 2024-03-23 10:36 | disposition home or self-care (01) | DRG 664 ==
LOC: ED 01:18 → MS 01:19
PROVIDERS: Family Medicine; Urology; ADMIT Student in an Organized Health Care Education/Training Program; ATTEND Student in an Organized Health Care Education/Training Program
PROC: 0TCB8ZZ Extirpation of Matter from Bladder, Via Natural or Artificial Opening Endoscopic (ICD-10-PCS; 2024-03-22)
PROC: 0T7D8ZZ Dilation of Urethra, Via Natural or Artificial Opening Endoscopic (ICD-10-PCS; 2024-03-22)
PROC: 0W3R8ZZ Control Bleeding in Genitourinary Tract, Via Natural or Artificial Opening Endoscopic (ICD-10-PCS; principal; 2024-03-22 09:30)
DX: R31.0 Gross hematuria (principal); N32.89 Other specified disorders of bladder; R33.9 Retention of urine, unspecified; E78.5 Hyperlipidemia, unspecified; N30.90 Cystitis, unspecified without hematuria; N40.0 Benign prostatic hyperplasia without lower urinary tract symptoms; J30.1 Allergic rhinitis due to pollen; N30.00 Acute cystitis without hematuria; N23 Unspecified renal colic; Z79.82 Long term (current) use of aspirin; Z79.899 Other long term (current) drug therapy
CPT/HCPCS: 00910; 36415; 51702; 51798; 74176; 80048; 80053; 81001; 83735; 85025; 86850; 86900; 86901; 87088; 93005; 93010; 99284-25; J0696; J1100; J1171; J2003; J2405; J2704; J3010; J7030; J7121